=== PATIENT | male | born 1985 | race Two or more races ===

== ENCOUNTER 2024-10-31 10:29 | Emergency (ER) | payer OTHER ==
[~2024-10-31] VITALS: Ht 185.4 cm; Wt 95.3 kg
== END 2024-10-31 11:49 | disposition home or self-care (01) ==
LOC: ER 10:31
DX: S81.021A Laceration with foreign body, right knee, initial encounter (principal); W25.XXXA Contact with sharp glass, initial encounter; Y93.89 Activity, other specified; Y92.89 Other specified places as the place of occurrence of the external cause; Z88.6 Allergy status to analgesic agent